=== PATIENT | male | born 2000 | race Caucasian/White ===

== ENCOUNTER 2022-03-25 20:04 | Inpatient (IN) | payer OTHER, SELFPAY ==
[2022-03-25 20:10] VITALS: BMI 23.7
[2022-03-25 20:16] VITALS: BP 133/68; PULSE 108; RESP 17; TEMP 37.1; O2SAT 97
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
--- NOTE | 2022-03-25 20:48 | MHC.EDTECH ---
t/w approached pt to obtain blood work. pt refused due to fear of needles and says he does not need blood work at this time. t/w explained importance of blood work. pt still refused. rn aware
--- NOTE | 2022-03-25 20:52 | MHC.CARE ---
Care Team completed [facility] smart sheet.
[2022-03-25 20:53] LABS: Amphetamine Screen Urine Not Detected (Not Detect); Barbiturates, Urine Not Detected (Not Detect); Benzodiazepines Screen Urine Not Detected (Not Detect); Cannabinoid Screen Urine Not Detected (Not Detect); Cocaine Screen Urine Not Detected (Not Detect); Fentanyl, urine Not Detected (Not Detect); Opiate Screen Urine Not Detected (Not Detect); Phencyclidine Screen Urine Not Detected (Not Detect)
[2022-03-25 20:57] LABS: COVID-19 Test Negative (Negative); IDNOW Serial# 16C4AD1C
[2022-03-26 05:47] VITALS: BP 119/62; PULSE 88; RESP 16; TEMP 37.4; O2SAT 96
--- NOTE | 2022-03-26 06:23 | PC.NURSE ---
Initially patient did struggle to fall sleep and even refused Ativan but eventually slept through the night, no distress observed/reported, patient was evaluated by care team disposition is section 12 inpatient bed search, med rec completed/patient is not on any home medication, patient refused blood draw stating he is afraid of needle, VSS, will continue to monitor.
--- NOTE | 2022-03-26 10:32 | PC.NURSE ---
Endorses anxiety and delusion about taking pills or crushed medication. Contact made to pharmacy: In formulary PO atarax, IV atarax, IV atavan, all can be adminsitered PO. MD notified of options. Pt states he would do better with liquid antianxieties medication. Per MD plan is to order PO Benadryl for anxiety.
[2022-03-26 11:58] LABS: MANUAL DIFF FLAG NO
[2022-03-26 12:00] LABS: Hemoglobin 14.2 g/dl (14.0-18.0); Lymphocytes Percent Auto 12.4 % (20-40); Mean Corpuscular Volume 87.8 fL (80.0-98.0); Monocytes Percent Auto 7.3 % (2-11); SCAN SMEAR FLAG 1
[2022-03-26 12:02] LABS: Basophils Percent Auto 0.3 % (0-2); Eosinophils Absolute Auto 0.1 X10*3/uL (0.0-0.4); Hematocrit 42.4 % (42.0-52.0); Imm Gran Abs Auto 0.02 X10*3/uL (0.00-0.03); Imm Gran Pct Auto 0.2 % (0.0-0.4); Lymphocytes Absolute Auto 1.4 X10*3/uL (1.2-4.9); Mean Corpuscular HGB Conc 33.5 g/dl (31.0-36.0); Mean Corpuscular Hemoglobin 29.4 pg (27.0-33.0); Mean Platelet Volume 13.1 fL (9.4-12.4); Monocytes Absolute Auto 0.8 X10*3/uL (0.1-1.2); Neutrophils Absolute Auto 8.7 x10*3/uL (2.0-8.3); Neutrophils Percent Auto 78.8 % (45-73); Platelet Count 158 X10*3/uL (160-400); Red Blood Count 4.83 X10*6/uL (4.60-5.80); Red Cell Distribution Width 12.1 % (11.0-16.0); White Blood Count 11.1 X10*3/uL (4.8-10.8)
[2022-03-26 12:04] LABS: PLT ABN DIST 1
[2022-03-26 12:20] LABS: Alanine Aminotransferase 23 U/L (0-40); Albumin Level 4.6 g/dL (3.5-5.0); Alkaline Phosphatase 91 U/L (39-117); Anion Gap 12 (12-20); Aspartate Amino Transferase 17 U/L (5-37); Bilirubin Direct 0.6 mg/dL (0.0-0.5); Bilirubin Total 2.7 mg/dL (0.0-1.0); Blood Urea Nitrogen 10 mg/dL (9-16); Calcium 9.3 mg/dL (8.4-10.2); Carbon Dioxide 24 mmol/L (22-29); Chloride 108 mmol/L (96-108); Creatinine Clr Calc Pharmacy 145.9; Estimated Glomerular Filt Rate > 60; Glucose Random 113 mg/dL (60-115); Lipase 18 U/L (8-78); Potassium 3.5 mmol/L (3.3-5.1); Sodium 140 mmol/L (135-145); Total Protein 6.6 g/dL (6.5-8.0)
[2022-03-26 17:42] VITALS: BP 135/48; PULSE 98; RESP 16; O2SAT 98
[2022-03-26 18:15] VITALS: BP 123/71; PULSE 111; TEMP 36.7; O2SAT 98
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
--- NOTE | 2022-03-26 19:56 | PC.NURSE ---
pt refused flu vaccine, stated he's already immunized this season
[2022-03-27 09:23] VITALS: BP 136/84; PULSE 102; RESP 18; TEMP 36.7; O2SAT 98
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
--- NOTE | 2022-03-27 16:12 | PC.NURSE ---
nt offered and refused Fresh air break
--- NOTE | 2022-03-27 16:13 | PC.NURSE ---
Patient offered and declined Fresh Air Break
[2022-03-27 19:45] VITALS: BP 137/72; PULSE 128
--- NOTE | 2022-03-28 07:39 | PC.NURSE ---
Late entry for 03/27: At approx. 1945 pt was observed as he sat on the floor in the hallway, c/o feeling dizzy and his heart thumping . Vitals 137/72, P 128, POC 89. Pt utilized grounding technique of deep breathing. Provider primary education professor notified, order for one time dose of ativan 0.5 mg given and administered at 2012. Pt reported positive effect from medication, was observed socializing and laughing with peers.
[2022-03-28 08:38] VITALS: BP 122/55; PULSE 110; TEMP 36.6; O2SAT 98
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
[2022-03-28 20:00] VITALS: BP 109/61; PULSE 122; RESP 18; TEMP 36.6; O2SAT 97
[2022-03-29] MEDS: cloNIDine HCL 0.1 MG TABLET PO (02:31)
[2022-03-29 02:34] VITALS: BP 135/58
[2022-03-29 09:30] VITALS: BP 110/66; PULSE 116; RESP 16; TEMP 36.8; O2SAT 98
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
--- NOTE | 2022-03-29 11:33 | PC.NURSE ---
Ronnell is alert, fully oriented, pleasant and cooperative with discharge process. He denies ideation, plan or intent to harm self or others. He denies physical complaint. He states, I learned a lot here and I feel better. I'm safe to go home.
== END 2022-03-29 12:00 | disposition home or self-care (01) | DRG 755 ==
LOC: HO.ED 03-26 01:01 → HO.PADLT16 03-26 17:46
PROVIDERS: Nurse Practitioner Family; Admitting Provider Psychiatry & Neurology Psychiatry; Emergency Provider Internal Medicine; Visit Provider Psychiatry & Neurology Psychiatry
DX: F43.23 Adjustment disorder with mixed anxiety and depressed mood (principal); R45.851 Suicidal ideations; F41.1 Generalized anxiety disorder; Z20.822 Contact with and (suspected) exposure to COVID-19
CPT/HCPCS: 36415; 80053; 80307; 82248; 82947; 83690; 85025; 87635; 99285

== ENCOUNTER 2023-09-08 11:53 | Emergency (ER) | payer OTHER, SELFPAY ==
[2023-09-08 12:08] VITALS: BP 122/76; PULSE 83; RESP 16; TEMP 37.2; O2SAT 99; BMI 23.7
[2023-09-08 16:00] VITALS: PULSE 73; RESP 18; TEMP 36.8; O2SAT 99
--- NOTE | 2023-09-08 16:05 | ED_ITS ---
[facility] - General Adult General Chief complaint: Allergic Reaction Stated complaint: facial swelling Time Seen by Provider: 09/08/23 15:25 Source: patient, RN notes reviewed and old records reviewed Mode of arrival: ambulatory History of Present Illness ED Provider: Aurea Almodovar PA-C [facility] narrative: 23-year-old male with no significant past medical history presenting to the ED complaining of right periorbital swelling since yesterday. Admits swelling was worse this morning upon waking. Denies known injury, tick/insect bite, allergens, new exposures, soaps/lotions or detergents, ocular involvement including double / blurry vision, foreign body sensation, recent dental procedures, oral pain, ear pain, fever Related Data Previous Rx's ?Medication ?Instructions ?Recorded amoxicillin 875 mg-potassium 1 tab PO BID 7 days #14 tabs 09/08/23 clavulanate 125 mg tablet cetirizine 10 mg capsule (Zyrtec) 10 mg PO DAILY 7 days #7 caps 09/08/23 diphenhydramine HCl 25 mg capsule 25 mg PO TID PRN allergic reaction 09/08/23 (Benadryl) #10 caps Allergies Allergy/AdvReac Type Severity Reaction Status Date / Time No Known Allergies Allergy Verified 09/08/23 12:10 Review of Systems Review of Systems: Constitutional: No Fever, No Chills ENT/Mouth: +facial swelling, No Ear Pain, No Nasal Congestion, No Sinus Pain, No Hoarseness, No sore throat, No Rhinorrhea, No Swallowing Difficulty Eye: No blurry vision, no double vision, no foreign body sensation, no tearing, no redness Cardiovascular: No Chest Pain, No SOB Respiratory: No Cough Gastrointestinal: No Nausea, No Vomiting, No Diarrhea, No Constipation, No Abdominal pain Musculoskeletal: No joint pain, No Myalgias, No Joint Swelling Skin: No Skin Lesions, No rash Neuro: No Weakness Yes all other systems are reviewed and are negative Constitutional: Constitutional: Reports as per [facility] Past Medical History Attestation statement: The following information was validated with the patient. Source: old records reviewed Social History Social History Household Members: Family Housing: House Do you presently have visiting nurse or other home services: No Alcohol intake: unknown Patient Tobacco Use Status: Never used Tobacco Advance Directives: No Advance Directives Information Provided: No service: No Sexual orientation: Straight/Heterosexual Physical Exam ED Vital Signs: Vital Signs - 24 hr 09/08/23 12:08 09/08/23 16:00 09/08/23 16:31 Temperature 99.0 F 98.3 F 98.1 F Pulse Rate 83 73 74 Respiratory Rate 16 18 18 Blood Pressure 122/76 124/74 Pulse Oximetry 99 99 98 Oxygen Delivery Method Room Air Room Air Room Air BMI result Body Mass Index 23.7 Const General: cooperative, healthy appearing and no acute distress Orientation/consciousness: patient oriented x3 Limitations: no limitations HENMT Head: Yes normal to inspection and Yes atraumatic Ears: hearing grossly normal bilaterally, external ears normal and mastoids normal General nose exam: Normal external nose present Mouth: Normal oral and palatal mucosa present and no drooling Teeth and gingiva: dentition normal Throat: Yes posterior oropharynx normal, Yes tonsils normal, Yes uvula midline, No peritonsillar mass, No uvula laterally displaced and No uvular edema Eyes Other: + right periorbital erythema/edema noted. No appreciable ocular involvement. EOMs intact without entrapment or pain. No visible insect bite. No warmth, fluctuance or induration VA (w/corrective lenses) right 20/25, left 20/30 Eyelids: Yes eyelids normal Conjunctivae: conjunctivae normal Pupils: Equal, round and reactive pupils present EOM: EOMs intact bilaterally Direct Ophthalmoscopy: normal light reflex and no photophobia Neck Neck: Yes normal visual inspection and Yes no meningeal signs Resp Effort & Inspection: normal respiratory effort and no respiratory distress Cardio Rate: regular rate Skin Rashes: no rashes Wounds: no wounds Neuro General: patient oriented x3, tone normal and no meningeal signs Cranial nerves: Yes CN's II-XII intact bilaterally and Yes Equal, round and reactive pupils present Gait exam (Neuro): Normal gait present Extrem General: Yes normal to inspection Medical Decision Making Medical Decision Making MDM Narrative: 23-year-old male with no significant past medical history presenting to the ED complaining of right periorbital swelling since yesterday. On exam vital signs stable, NAD, nontoxic appearing, physical exam as noted above with right periorbital edema/erythema. No appreciable ocular involvement. No oral or ear involvement. Concern for preseptal cellulitis vs tic/insect bite vs allergic reaction. No evidence of anaphylaxis. No evidence of orbital cellulitis or dental abscess. No respiratory distress. Plan: Visual acuity, p.o. antibiotics, close PCP follow-up Please refer to course for remaining clinical decision making, interpretation of labs/imaging results, and discussions with consultants and/or family members. Differential Diagnosis Differential Diagnoses: The differential diagnosis associated with the presentation includes As above External Record Review External record reviewed: Inpatient record, Office record, Outpatient record, Prior outpatient labs, Prior outpatient radiology, Primary care record and Outside ED record Tests considered The following testing was considered but not selected: As above Prescription Management I considered prescription management with: Pain Medication and Antibiotic Discharge Plan Discharge Clinical Impression: Preseptal cellulitis of right eye Patient Disposition: Home, Self-Care Instructions: Periorbital Cellulitis in Adults (ED) Additional Instructions: Your concern he may have a skin infection surrounding her eye. Please take anti biotics as prescribed until completion In addition ibuprofen will help with inflammation/pain Benadryl and Zyrtec help with swelling /possible allergic reaction. Benadryl will make you drowsy. Take at night. Do not drive while taking Benadryl If symptoms persist or worsen, swelling worsens, you develop double or blurry vision, drainage from her eye, or fever return to the ED immediately Follow-up with your doctor in 2 days Prescriptions: New amoxicillin-pot clavulanate 875-125 mg tablet 1 tab PO BID 7 Days Qty: 14 0RF Zyrtec 10 mg capsule 10 mg PO DAILY 7 Days Qty: 7 0RF diphenhydramine HCl [Benadryl] 25 mg capsule 25 mg PO TID PRN (Reason: allergic reaction) Qty: 10 0RF Referrals: Physician,None [Primary Care Provider] - 2 days Stand Alone Forms: Work/School Release Interventions: ED Discharge Assessment Last Done: 09/08/23 16:31 Discharge Date/Time: 09/08/23 16:37 Print Language: Paraguayan
[2023-09-08 16:31] VITALS: BP 124/74; PULSE 74; RESP 18; TEMP 36.7; O2SAT 98
== END 2023-09-08 16:37 | disposition home or self-care (01) ==
PROVIDERS: Emergency Provider Student in an Organized Health Care Education/Training Program
DX: L03.213 Periorbital cellulitis (principal)
CPT/HCPCS: 99283